=== PATIENT | female | born 1985 | race Two or more races ===

== ENCOUNTER 2020-11-04 13:24 | Emergency (ER) | payer OTHER ==
[2020-11-04 13:55] LABS: BASOPHILS % (AUTO) 0.4 %; HCT - HEMATOCRIT 42.1 % (37.0-47.0); HGB - HEMOGLOBIN 14.2 g/dL (12.0-16.0); LYMPHOCYTES # (AUTO) 0.5 10^3/uL (1.5-3.5); LYMPHOCYTES % (AUTO) 5.2 %; MEAN CORPUSCULAR HEMOGLOBIN 31.8 pg (27.0-31.0); MEAN CORPUSCULAR HGB CONC 33.7 g/dL (32.0-36.0); MEAN CORPUSCULAR VOLUME 94.2 fL (81.0-99.0); MEAN PLATELET VOLUME 11.5 fL (7.9-10.8); MONOCYTES # (AUTO) 0.2 10^3/uL (0.0-1.0); MONOCYTES % (AUTO) 2.5 %; NEUTROPHILS % (AUTO) 91.7 %; PLT - PLATELET COUNT 204 10^3/uL (130-450); RED BLOOD COUNT 4.47 10^6/uL (4.20-5.40); RED CELL DISTRIBUTION WIDTH 12.9 % (12.0-15.0); WHITE BLOOD COUNT 9.8 x10^3/uL (4.8-10.8)
[2020-11-04 14:08] LABS: ALBUMIN/GLOBULIN RATIO 1.6 (1.0-2.2); BILIRUBIN,TOTAL 0.9 mg/dL (0.2-1.0); CALCIUM 9.6 mg/dL (8.5-10.3); CREATININE 0.7 mg/dL (0.4-1.0); POTASSIUM 3.5 mmol/L (3.5-5.0); TOTAL PROTEIN 8.1 g/dL (6.7-8.2)
[2020-11-04 14:51] LABS: BILIRUBIN,URINE NEGATIVE (NEGATIVE); GLUCOSE, URINE (UA) NEGATIVE (NEGATIVE); KETONES,URINE (UA) >=80 mg/dL (NEGATIVE); LEUKOCYTE ESTERASE, URINE NEGATIVE (NEGATIVE); NITRITE,URINE NEGATIVE (NEGATIVE); OCCULT BLOOD,URINE NEGATIVE (NEGATIVE); PH,URINE 7.5 PH (5.0-7.5); PROTEIN,URINE 30 mg/dL (NEGATIVE); UROBILINOGEN,URINE 0.2 (NORMAL) E.U./dL (NORMAL)
[2020-11-04 14:54] LABS: CLARITY,URINE CLEAR (CLEAR); HCG UR QUAL NEGATIVE
[2020-11-04 15:04] LABS: RBC,URINE 0-5 /HPF (0-5); WBC,URINE 0-3 /HPF (0-5)
[2020-11-04 15:05] LABS: BACTERIA,URINE Rare /HPF (None Seen); SQUAMOUS EPITHELIAL CELL,UR MANY Squamous (<= Few)
[2020-11-04] MEDS ORDERED: ONDANSETRON 4 MG/2 ML VIAL IVP STA (15:44)
[2020-11-04] MEDS ORDERED: SODIUM CHLORIDE 0.9% 1,000 ML IV STA (15:44)
--- NOTE | 2020-11-04 15:55 | ED Physician Documentation ---
History of Present Illness - Stated complaint Stated Complaint: N/V/D - Chief complaint Chief Complaint: Abd Pain - Additonal information Additional information: 34-year-old female presents emergency department with chief complaint of nausea and vomiting. She reports that yesterday afternoon she reports received her second COVID-19 vaccination. Shortly thereafter she began having fevers chills and uncontrolled vomiting. Reports keeping nothing down overnight. She denies dysuria or focal abdominal pain. Denies pertinent past medical history any past surgical history. She feels weak and dehydrated at this time. Review of Systems Constitutional: reports: Fever, Chills. denies: Myalgias Eyes: reports: Reviewed and negative Ears: reports: Reviewed and negative Nose: reports: Reviewed and negative Throat: reports: Reviewed and negative Cardiac: reports: Chest pain / pressure Respiratory: reports: Reviewed and negative GI: reports: Nausea, Vomiting. denies: Abdominal Pain, Constipation, Diarrhea, Hematemesis, Bloody / black stool : denies: Dysuria, Frequency, Hesitancy Skin: reports: Reviewed and negative Musculoskeletal: reports: Reviewed and negative PD PAST MEDICAL HISTORY - Past Medical History GI: GERD - Past Surgical History Past Surgical History: No - Present Medications Home Medications: Ambulatory Orders Medication Instructions Recorded Confirmed Ondansetron Odt [Zofran] 4 mg TL Q6H PRN #10 tablet 11/04/20 - Allergies Allergies/Adverse Reactions: Allergies Allergy/AdvReac Type Severity Reaction Status Date / Time aspirin AdvReac Intermediate Edema Verified 11/04/20 13:28 ibuprofen AdvReac Intermediate Edema Verified 11/04/20 13:28 - Social History Does the pt smoke?: No Smoking Status: Never smoker Does the pt drink ETOH?: No Does the pt have substance abuse?: No - Immunizations Immunizations are current?: Yes PD ED PE EXPANDED - General General: Alert, No acute distress - Cardiac Cardiac: Regular Rate, Radial strong equal, Pedal strong equal, Cap refill < 2 sec - Respiratory Respiratory: Clear to ausultation sanjana. No: Distress, Labored - Abdomen Abdomen: Normal Bowel sounds. No: Tender to palpation - Extremities Extremities: Normal. No: Deformity, Tenderness - Neuro Neuro: Alert and Oriented X 3, CNII-XII intact - GCS Eye Opening: Spontaneous Motor: Obeys Commands Verbal: Oriented Total: 15 Results - Vitals Vitals: Vital Signs - 24 hr 11/04/20 13:30 Temperature 37 C Heart Rate 96 Respiratory 18 Rate Blood Pressure 114/58 L O2 Saturation 98 Oxygen O2 Source Room air - Labs Labs: Laboratory Tests 11/04/20 11/04/20 11/04/20 13:51 13:51 14:09 WBC 9.8 RBC 4.47 Hgb 14.2 Hct 42.1 MCV 94.2 MCH 31.8 H MCHC 33.7 RDW 12.9 Plt Count 204 MPV 11.5 H Neut # (Auto) 9.0 H Lymph # (Auto) 0.5 L Rains # (Auto) 0.2 Eos # (Auto) 0.0 Baso # (Auto) 0.0 Absolute Nucleated RBC 0.00 Nucleated RBC % 0.0 Sodium 139 Potassium 3.5 Chloride 97 L Carbon Dioxide 28 Anion Gap 14.0 H BUN 18 Creatinine 0.7 Estimated GFR (MDRD) 97 Glucose 129 H Calcium 9.6 Total Bilirubin 0.9 AST 23 ALT 24 Alkaline Phosphatase 58 Total Protein 8.1 Albumin 5.0 Globulin 3.1 Albumin/Globulin Ratio 1.6 Lipase 22 Urine Color YELLOW Urine Clarity CLEAR Urine pH 7.5 Ur Specific [place] 1.010 Urine Protein 30 H Urine Glucose (UA) NEGATIVE Urine Ketones >=80 H Urine Occult Blood NEGATIVE Urine Nitrite NEGATIVE Urine Bilirubin NEGATIVE Urine Urobilinogen 0.2 (NORMAL) Ur Leukocyte Esterase NEGATIVE Urine RBC 0-5 Urine WBC 0-3 Ur Squamous Epith Cells MANY Squamous H Urine Bacteria Rare Ur Microscopic Review INDICATED Urine Culture Comments NOT INDICATED Urine HCG, Qual NEGATIVE PD MEDICAL DECISION MAKING - ED course Complexity details: reviewed results, re-evaluated patient, considered differential, d/w patient ED course: 34-year-old female presents emergency department with acute onset of fever, chills nausea vomiting. This follows a COVID-19 vaccination yesterday. Screening labs do not show any worrisome leukocytosis or significant electrolyte abnormality. She has no dysuria and her urine is not consistent with infection. Patient was given 1 L of IV fluids as well as Zofran here in the emergency department with marked improvement in the symptoms. Deferred any CT imaging as she had no abdominal pain elicited on exam. Patient will be discharged with prescription for Zofran. Emergent return precautions discussed. Departure - Departure Disposition: 01 Home, Self Care Clinical Impression: Nausea and vomiting Qualifiers: Vomiting type: unspecified Vomiting Intractability: non-intractable Qualified Code(s): R11.2 - Nausea with vomiting, unspecified Condition: Stable Record reviewed to determine appropriate education?: Yes Instructions: ED Diet Vomiting Wwo Diarrhea Prescriptions: Ondansetron Odt [Zofran] 4 mg TL Q6H PRN #10 tablet PRN Reason: Nausea / Vomiting Comments: Eli you were seen today in the emergency department after your you received a COVID-19 vaccination and then developed nausea and vomiting. Here in the emergency department we did give you some IV fluids as well as nausea medicine and you felt much better. Your screening labs do not show any worrisome findings. I have prescribed a limited amount of medication called Zofran that you can take under the tongue 2-3 times a day to help with nausea. I recommend that you frequently sip clear liquids and as your nausea begins to improve then slowly advance your diet. Return to the emergency department for fevers higher than 102, suddenly severe abdominal pain or any fainting episodes.
[2020-11-04 16:55] VITALS: BP 102/62
== END 2020-11-04 16:57 | disposition home or self-care (01) ==
LOC: ED 13:24
DX: R11.2 Nausea with vomiting, unspecified (principal)
CPT/HCPCS: 36415; 80053; 81001; 81003; 81025; 83690; 85025; 87086; 96374; 99284